=== PATIENT | female | born 1940 | race Caucasian/White ===

== ENCOUNTER 2017-06-08 11:16 | Observation (INO) ==
[2017-06-08] MEDS ORDERED: fentaNYL 100 MCG/2 ML VIAL IV STA (13:22)
[2017-06-08] MEDS ORDERED: fentaNYL 100 MCG/2 ML VIAL ONE (13:42)
[2017-06-08 14:03] LABS: Basophils % 0.4 % (0.0-0.8); Eosinophils % 0.1 % (0.00-10.9); Hematocrit 44.3 VOL% (35.7-47.0); Hemoglobin 14.7 GM/DL (12.0-16.0); Immature Granulocytes % 0.7 %; Immature Granulocytes Absolute 0.07 #; Lymphocytes # 1.1 10*3/uL (1.4-4.0); Lymphocytes % 11.4 % (21.3-54.2); Mean Corpuscular HGB Conc 33.2 GM/DL (32-36); Mean Corpuscular Hemoglobin 32 PG (27-34); Mean Corpuscular Volume 95.7 FL (87-102); Mean Platelet Volume 10.2 FL (9.6-12.0); Monocytes # 0.4 10*3/uL (0.11-0.8); Monocytes % 4.7 % (1.7-12.7); Neutrophils # 7.7 10*3/uL (1.4-7.4); Neutrophils % 82.7 % (38.7-73.9); Platelet Count 212 T/CUMM (130-400); Red Blood Count 4.63 MC/CUMM (3.8-5.5); White Blood Count 9.4 T/CUMM (4-12)
[2017-06-08 14:14] LABS: Calcium 8.7 MG/DL (8.5-10.1); Potassium 4.2 MMOL/L (3.5-5.1)
[2017-06-08] MEDS ORDERED: diphenhydrAMINE CAP 25 MG CAPSULE PO PRN (15:50)
[2017-06-08] MEDS ORDERED: ACETAMINOPHEN 325 MG TABLET PO PRN (15:50)
[2017-06-08] MEDS ORDERED: DEXTROSE 50% 25 GM/50 ML VIAL IV PRN (15:50)
[2017-06-08] MEDS ORDERED: guaiFENesin/DM ER 600-30 MG TABLET PO PRN (15:50)
[2017-06-08] MEDS ORDERED: GLUCAGON 1 MG VIAL IM PRN (15:50)
[2017-06-08] MEDS ORDERED: ONDANSETRON 4 MG/2 ML VIAL IV PRN (15:50)
[2017-06-08] MEDS ORDERED: KETOROLAC 30 MG/1 ML VIAL IV ONE (15:50)
[2017-06-08] MEDS ORDERED: CETIRIZINE 10 MG TABLET PO PRN (15:55)
[2017-06-08] MEDS ORDERED: POTASSIUM IODIDE ORAL SOLN 1,000 MG/ML BOTTLE PO PRN (15:55)
[2017-06-08] MEDS ORDERED: ONDANSETRON 4 MG/2 ML VIAL IV STA (16:16)
[2017-06-08] MEDS ORDERED: KETOROLAC 30 MG/1 ML VIAL ONE (16:19)
[2017-06-08] MEDS ORDERED: fentaNYL 25 MCG/HR PATCH TRANSDERM SCH (16:30)
[2017-06-08] MEDS: KETOROLAC 30 MG/1 ML VIAL IV SCH ×2 (18:15→21:06)
[2017-06-08] MEDS: LISINOPRIL 5 MG TABLET PO SCH (18:15)
[2017-06-08] MEDS: PANTOPRAZOLE 40 MG TABLET PO SCH (18:15)
[2017-06-08] MEDS: FUROSEMIDE 40 MG TABLET PO SCH ×2 (18:15→18:16)
[2017-06-08] MEDS: ENOXAPARIN 40 MG/0.4 ML SYRINGE SUBCUT SCH (18:15)
[2017-06-08] MEDS: INSULIN LISPRO 100 UNIT/ML SUBCUT SCH (18:35)
[2017-06-08] MEDS ORDERED: UBIDECARENONE 400 MG PO SCH (21:00)
[2017-06-08] MEDS: GABAPENTIN 300 MG CAPSULE PO SCH (21:06)
[2017-06-08] MEDS: DOCUSATE SODIUM 100 MG CAPSULE PO SCH (21:06)
[2017-06-08] MEDS: ASPIRIN EC 81 MG TABLET PO SCH (21:06)
[2017-06-08 23:09] LABS: Apearance,Urine Slightly Hazy (Clear); Bacteria,Urine Many /HPF (Few); Bilirubin,Urine Negative (Negative); Blood, Urine Small mg/dL (Negative); Glucose,Urine (UA) 150 mg/dL (Negative); Ketones,Urine 20 mg/dL (Negative); Mucus,Urine Occasional /LPF (Occasional); Nitrite,Urine Negative (Negative); Protein,Urine Negative; Squamous Epithelial Cell,Urine Occasional /HPF (0-10); Urine Color Yellow (Yellow); Urine Specific Gravity 1.015 (1.001-1.035); Urine Urobilinogen < 2.0 EU/DL (0.2-1.0); WBC,Urine 53 /HPF (0-6)
[2017-06-09] MEDS: KETOROLAC 30 MG/1 ML VIAL IV SCH ×5 (03:04→21:05)
[2017-06-09 05:03] LABS: Basophils % 0.5 % (0.0-0.8); Eosinophils # 0.2 10*3/uL (0.0-0.87); Eosinophils % 2.9 % (0.00-10.9); Hematocrit 38.3 VOL% (35.7-47.0); Hemoglobin 12.9 GM/DL (12.0-16.0); Immature Granulocytes % 0.3 %; Immature Granulocytes Absolute 0.02 #; Lymphocytes # 2.1 10*3/uL (1.4-4.0); Lymphocytes % 26.5 % (21.3-54.2); Mean Corpuscular HGB Conc 33.7 GM/DL (32-36); Mean Corpuscular Hemoglobin 32 PG (27-34); Mean Corpuscular Volume 94.8 FL (87-102); Mean Platelet Volume 10.6 FL (9.6-12.0); Monocytes # 0.8 10*3/uL (0.11-0.8); Monocytes % 10.5 % (1.7-12.7); Neutrophils # 4.7 10*3/uL (1.4-7.4); Neutrophils % 59.3 % (38.7-73.9); Platelet Count 208 T/CUMM (130-400); Red Blood Count 4.04 MC/CUMM (3.8-5.5); Red Cell Distribution Width 13.1 % (9.3-17.3); White Blood Count 7.9 T/CUMM (4-12)
[2017-06-09 05:42] LABS: Calcium 8.3 MG/DL (8.5-10.1); Osmolality,Calculated 283.4 MOS/KG (273-304); Potassium 4.1 MMOL/L (3.5-5.1); Risk Ratio 3.23
[2017-06-09] MEDS: INSULIN LISPRO 100 UNIT/ML SUBCUT SCH ×5 (07:17→21:09)
[2017-06-09] MEDS ORDERED: NON-FORMULARY MEDICATION (Insulin Degludec [Tresiba Flextouch U-100] 100 UNIT) SUBCUT SCH (09:00)
[2017-06-09] MEDS: DOCUSATE SODIUM 100 MG CAPSULE PO SCH ×2 (09:42→21:04)
[2017-06-09] MEDS: LISINOPRIL 5 MG TABLET PO SCH (09:42)
[2017-06-09] MEDS: MULTIVITAMIN (CENTRUM) TABLET PO SCH (09:42)
[2017-06-09] MEDS: CHOLECALCIFEROL 1,000 UNIT TABLET PO SCH (09:42)
[2017-06-09] MEDS: FUROSEMIDE 40 MG TABLET PO SCH (09:42)
[2017-06-09] MEDS: PANTOPRAZOLE 40 MG TABLET PO SCH (09:42)
[2017-06-09] MEDS: GABAPENTIN 300 MG CAPSULE PO SCH ×2 (09:42→21:03)
[2017-06-09] MEDS: MULTIVITAMIN (BEROCCA) TABLET PO SCH (09:42)
[2017-06-09] MEDS: CIPROFLOXACIN 500 MG TABLET PO SCH ×2 (12:21→21:04)
[2017-06-09] MEDS: ENOXAPARIN 40 MG/0.4 ML SYRINGE SUBCUT SCH (17:26)
[2017-06-09] MEDS: ASPIRIN EC 81 MG TABLET PO SCH (21:04)
[2017-06-10] MEDS: KETOROLAC 30 MG/1 ML VIAL IV SCH ×2 (03:54→10:52)
[2017-06-10] MEDS: INSULIN LISPRO 100 UNIT/ML SUBCUT SCH ×3 (07:54→12:08)
[2017-06-10] MEDS: MULTIVITAMIN (BEROCCA) TABLET PO SCH (09:00)
[2017-06-10] MEDS: GABAPENTIN 300 MG CAPSULE PO SCH (09:01)
[2017-06-10] MEDS: PANTOPRAZOLE 40 MG TABLET PO SCH (09:01)
[2017-06-10] MEDS: MULTIVITAMIN (CENTRUM) TABLET PO SCH (09:01)
[2017-06-10] MEDS: DOCUSATE SODIUM 100 MG CAPSULE PO SCH (09:01)
[2017-06-10] MEDS: FUROSEMIDE 40 MG TABLET PO SCH (09:01)
[2017-06-10] MEDS: LISINOPRIL 5 MG TABLET PO SCH (09:01)
[2017-06-10] MEDS: CIPROFLOXACIN 500 MG TABLET PO SCH (09:01)
[2017-06-10] MEDS: CHOLECALCIFEROL 1,000 UNIT TABLET PO SCH (09:01)
[2017-06-10 12:04] VITALS: BP 112/66
== END 2017-06-10 13:50 | disposition home or self-care (01) ==
LOC: EDUNIT# → N.EDINP 11:16 → N.ED 11:16 → N.3E 17:24
PROVIDERS: ADMIT Family Medicine; ATTEND Family Medicine